=== PATIENT | male | born 1945 | race Caucasian/White ===

== ENCOUNTER → 2023-11-07 06:01 | Outpatient (REF) | payer MEDICARE, OTHER, SELFPAY ==
[2023-11-07 08:48] LABS: ALT (SGPT) 30 U/L (0-50); AST (SGOT) 40 U/L (17-59); Albumin 4.3 g/dl (3.5-5.0); Alkaline Phosphatase 78 U/L (38-126); Blood Urea Nitrogen 17 mg/dl (9-20); Calcium 9.3 mg/dl (8.4-10.2); Carbon Dioxide 31 mmol/L (22-30); Chloride 103 mmol/L (98-107); Glucose 124 mg/dl (70-99); HDL Cholesterol 54 mg/dl; LDL Cholesterol, Calculated 99 mg/dl; Potassium 4.5 mmol/L (3.5-5.1); Sodium 138 mmol/L (135-145); Total Bilirubin 0.7 mg/dl (0.2-1.3); Total Cholesterol 173 mg/dl (50-199); Total Protein 6.8 g/dl (6.3-8.2); Triglyceride 100 mg/dl (10-149); Very Low Density Lipoprotein 20 mg/dl (0-30); eGFR > 60.00
[2023-11-07 09:24] LABS: Glycohemoglobin (HgbA1c) 6.3 % (4.0-5.6)
[2023-11-07 10:22] LABS: PSA, Total - Diagnostic 4.23 ng/ml (0.0-4.0)
== END ==
LOC: HWLAB 06:01
PROVIDERS: ATTENDING PHYSICIAN Internal Medicine
DX: R73.01 Impaired fasting glucose (principal); E78.5 Hyperlipidemia, unspecified; R97.20 Elevated prostate specific antigen [PSA]
CPT/HCPCS: 36415; 80053; 80061; 83036; 84153

== ENCOUNTER → 2024-09-15 06:37 | Outpatient (REF) | payer MEDICARE, OTHER, SELFPAY ==
[2024-09-15 10:01] LABS: ALT (SGPT) 29 U/L (0-50); AST (SGOT) 40 U/L (17-59); Albumin 4.3 g/dl (3.5-5.0); Alkaline Phosphatase 80 U/L (38-126); Blood Urea Nitrogen 22 mg/dl (9-20); Calcium 9.3 mg/dl (8.4-10.2); Carbon Dioxide 28 mmol/L (22-30); Chloride 101 mmol/L (98-107); Glucose 121 mg/dl (70-99); HDL Cholesterol 56 mg/dl; LDL Cholesterol, Calculated 104 mg/dl; Potassium 4.3 mmol/L (3.5-5.1); Sodium 139 mmol/L (135-145); Total Bilirubin 0.9 mg/dl (0.2-1.3); Total Cholesterol 180 mg/dl (50-199); Total Protein 6.8 g/dl (6.3-8.2); Triglyceride 104 mg/dl (10-149); Very Low Density Lipoprotein 20 mg/dl (0-30); eGFR > 60.00
== END ==
LOC: HWLAB 06:37
PROVIDERS: ATTENDING PHYSICIAN Internal Medicine
DX: E78.5 Hyperlipidemia, unspecified (principal); R73.01 Impaired fasting glucose
CPT/HCPCS: 36415; 80053; 80061; 83036

== ENCOUNTER 2025-05-31 12:42 | Emergency (ER) | payer MEDICARE, OTHER, SELFPAY ==
[2025-05-31 12:44] VITALS: BP 161/94
--- NOTE | 2025-05-31 13:12 | ED.GENMED ---
History of Present Illness
General
Chief Complaint: Skin Surface Trauma
Source: patient
Time Seen by Provider: 05/31/25 13:08
History of Present Illness
History of Present Illness:
80-year-old male presenting to the ER for evaluation after cutting his left thumb on a table saw about 30 minutes prior to arrival. Patient is right-hand dominant. No other injuries were sustained. Unknown last tetanus.
Past History
Past History
ED Past Medical History: Hypercholesterolemia
ED Past Surgical History: Other
Social History
Tobacco: Non-smoker
Alcohol: Occasional
Drug: None
Personal:
Living: with family
Review of Systems
Review of Systems
All Other Systems: ROS reviewed and negative except as documented in HPI and ROS
Phy Exam
Physical Exam
Physical Exam:
GENERAL: Alert , in no apparent distress
EYE: conjunctiva clear
Head: Normocephalic atraumatic
NECK: Supple,
ENT: mmm.
LUNGS: no acute respiratory distress
NEUROLOGICAL: Alert and oriented
SKIN: Warm and dry, laceration to the volar surface of the left thumb from the tip of the thumb extending proximal past the IP joint. The proximalmost portion is gaping, distalmost portion with skin edges close to being still approximated. There
is no active bleeding
MUSCULOSKELETAL: well perfused. Patient allows for full range of motion of the thumb without difficulty, sensation is grossly intact light touch throughout
PSYCH: Normal and appropriate interaction.
Scores
Heart Failure Risk
Heart Failure Risk Score: Not Applicable
Heart Score for Chest Pain Patients
STEMI patient?: Not applicable
Withdrawal Assessment of Alcohol
Withdrawal Assessment Completed?: Not applicable
Course
Orders/Labs/Results
Orders:
Orders
05/31/25 13:11
Acetaminophen [Tylenol] 650 mg PO NOW STA
Ibuprofen [Motrin] 600 mg PO NOW STA
Tetanus/Diphth/Acelpertussis [Adacel] 0.5 ml IM .ONCE ONE
CR Hand - Left Min 3 Views Urgent
Comment:
Reason For Exam: thumb lac from tablesaw
Vital Signs
Initial and Last Documented VS:
Initial Vital Signs
Temp Pulse Resp BP Pulse Ox
98.2 F 84 16 161/94 98
05/31/25 12:44 05/31/25 12:44 05/31/25 12:44 05/31/25 12:44 05/31/25 12:44
Last Documented Vital Signs
Temp Pulse Resp BP Pulse Ox
98.2 F 84 16 161/94 98
05/31/25 12:44 05/31/25 12:44 05/31/25 12:44 05/31/25 12:44 05/31/25 13:16
Procedures
Laceration Closure
Left Thumb:
Status of Wound: clean
Size of Wound in cm: 2
Description of Wound Edges: ragged
Preparation: cleaned with saline
Anesthesia: 1% Lidocaine and Digital-Regional
Revision/Debridement: routine- no revision
Type of Closure: single layer closure
Skin Closure Material: 5-0 nylon
Number of sutures: 12
MDM/Problems Addressed
Differential Diagnosis Includes:
Superficial laceration
Nerve/tendon injury
Fracture
MDM/Problems Addressed:
80-year-old male presenting the ER for evaluation of laceration sustained to the left thumb with a table saw. Injury appears superficial. Patient has full range of motion of the thumb and intact and equal sensation. Will obtain x-ray to rule out
fracture although my suspicion for this is less likely given the laceration is superficial. Motrin and Tylenol ordered for pain relief. Anticipate discharge home. Tetanus vaccine ordered.
*Radiology
Radiology exam reviewed: preliminary read by ED provider (No acute fracture)
*Pulse Oximetry
SaO2: 98
Oxygen Mode of Delivery: Room air
Patient hypoxic: no
*Critical Care Note
Total Time (30-74mins, 75-104mins- exclusive of procedures): Not Applicable
Patient Management
Escalation/DeEscalation of care consider admission/obs:
Laceration repaired as above without difficulty. Patient will follow-up with primary care provider. Suture removal in 10 to 12 days.
ED Attending Note
-
Portions of this chart may have been created with voice recognition software.� Occasional wrong word or��sound alike� substitutions may have occurred due to the inherent limitations of voice recognition software.
Discharge Plan
Departure
Patient Disposition: Home (Routine Discharge)
Date of Disposition: 05/31/25
Time of Disposition: 15:00
Patient with high blood pressure during this ER visit?: Yes
Discharge Problem:
Laceration of left thumb
Instructions: Laceration Repair With Stitches (DC)
Referrals:
Vangie Welch MD [Family Provider, Internal Medicine]
Activity Restrictions/Additional Instructions:
Suture removal in 10-12 days
Interventions
Interventions:
*Risk Screen - Suicide Last Done: 05/31/25 12:44
*Neglect/Abuse Screening Last Done: 05/31/25 12:44
*Nursing Disposition Last Done: 05/31/25 15:08
ED-Skin Assessment Last Done: 05/31/25 13:37
Discharge Date and Time
Discharge Date/Time: 05/31/25 15:09
Print Language: FRISIAN
[2025-05-31] MEDS: ADACEL 0.5 ML IM (13:19)
[2025-05-31] MEDS: MOTRIN 600 MG PO (13:20)
[2025-05-31] MEDS: TYLENOL 650 MG PO (13:20)
== END 2025-05-31 15:09 | disposition home or self-care (01) ==
LOC: EMR 12:42
PROVIDERS: EMERGENCY PHYSICIAN Emergency Medicine; FAMILY PHYSICIAN Internal Medicine
DX: S61.012A Laceration without foreign body of left thumb without damage to nail, initial encounter (principal); W31.2XXA Contact with powered woodworking and forming machines, initial encounter; Z23 Encounter for immunization; R03.0 Elevated blood-pressure reading, without diagnosis of hypertension; E78.00 Pure hypercholesterolemia, unspecified
CPT/HCPCS: 99283; 12001; 90471; 73130; 90715